=== PATIENT | female | born 1955 | race Caucasian/White ===

== ENCOUNTER 2017-12-23 19:01 | Emergency (ER) | payer MEDICAID, OTHER ==
[~2017-12-23] VITALS: Ht 170.2 cm; Wt 68.0 kg
[~2017-12-23 19:01] MED LIST: ALPR1TAB2 PO; CAPE150T PO; CAPE500T PO; DULO20CA PO; HYDR-3682 PO; ONDA-133 PO; PRE5T PO; SIMV10TA84 PO
[2017-12-23] MEDS ORDERED: ONDANSETRON HCL 4 MG/2 ML VIAL IV ONE (19:45)
[2017-12-23] MEDS ORDERED: NALBUPHINE HCL 10 MG/1ml INJECTION IV ONE (19:45)
[2017-12-23 19:54] LABS: Partial Thromboplastin Time 22.7 sec (23.78-33.04); Prothrombin Time 10.7 sec (9.27-12.13)
[2017-12-23 19:58] LABS: Calcium 8.8 mg/dL (8.5-10.1)
[2017-12-23 19:59] LABS: Basophils # (auto) 0.1 uL; Basophils % (auto) 0.3 % (0.0-2.0); Eosinophils # (auto) 0 uL; Eosinophils % (auto) 0.2 % (0.0-7.0); Hematocrit 44.9 % (36.0-46.0); Hemoglobin 15.3 g/dL (12.2-16.2); Lymphocytes # (auto) 0.7 uL; Mean Corpuscular Hemoglobin 31.5 pg (28.0-32.0); Mean Corpuscular Volume 92.6 fL (80.0-100.0); Monocytes # (auto) 0.5 uL; Monocytes % (auto) 3.2 % (0.0-12.0); Neutrophils # (auto) 15.7 uL; Neutrophils % (auto) 92.3 % (37.0-80.0); Platelet Count (auto) 400 10^3/uL (140-450); Red Blood Cells 4.85 10^6/uL (4.0-5.20); Red Cell Distribution Width 13.2 % (11.8-14.3)
[2017-12-23 20:00] LABS: BUN/Creatinine Ratio 14.1
[2017-12-23 20:09] LABS: Bilirubin, Total 0.7 mg/dL (0.2-1.0); Total Protein 8.4 g/dL (6.4-8.2)
[2017-12-23] MEDS: SODIUM CHLORIDE 0.9% 1,000 ML IV SCH (20:30)
[2017-12-23] MEDS ORDERED: HYDROmorphone HCL 2 MG/ML VL IV ONE (21:30)
[2017-12-23] MEDS ORDERED: MEPERIDINE HCL (50 MG/ML) 1 ML VIAL IV ONE (23:00)
[2017-12-24] MEDS: SODIUM CHLORIDE 0.9% 1,000 ML IV SCH ×2 (00:48→04:39)
[2017-12-24] MEDS ORDERED: ONDANSETRON HCL 4 MG/2 ML VIAL IV ONE (02:15)
[2017-12-24] MEDS ORDERED: MEPERIDINE HCL (50 MG/ML) 1 ML VIAL IV ONE ×2 (02:15→08:00)
[2017-12-24] MEDS ORDERED: cefTRIAXone 1GM/10ml IVPUSH 10 ML IV ONE (02:30)
[2017-12-24] MEDS ORDERED: metroNIDAZOLE 500MG/100ML 100 ML IV ONE (02:30)
[2017-12-24] MEDS ORDERED: diphenhdrAMINE HCL 50 MG/1 ML VL ONE (03:37)
[2017-12-24] MEDS ORDERED: diphenhdrAMINE HCL 50 MG/1 ML VL IV ONE (03:45)
[2017-12-24 03:50] LABS: Urine Bacteria FEW /hpf (None Seen); Urine Blood Negative /uL (Negative); Urine Hyaline Cast MANY /lpf (0 - 2); Urine Mucus MODERATE (None Seen); Urine WBC 4 /hpf (0 - 5)
[2017-12-24 03:55] LABS: Alcohol, Urine < 3.0 mg/dL (0-5); Amphetamine Screen, Urine NEGATIVE (NEGATIVE); Barbiturate Scree,Urine NEGATIVE (NEGATIVE); Benzodiazephine Screen, Urine POSITIVE (NEGATIVE); Cannabinoid Screen, Urine NEGATIVE (NEGATIVE); Cocaine Screen, Urine NEGATIVE (NEGATIVE); Opiate Scree,Urine NEGATIVE (NEGATIVE); Phencyclidine Screen, Urine NEGATIVE (NEGATIVE)
[2017-12-24 07:48] VITALS: BP 141/93
[2017-12-24] MEDS ORDERED: PROMETHAZINE HCL 25 MG/ML 1ML IV ONE (08:00)
== END 2017-12-24 10:04 | disposition short-term general hospital (02) ==
LOC: ER 19:01 → EDBD 19:01 → ER 12-24 10:04
DX: K56.699 Other intestinal obstruction unspecified as to partial versus complete obstruction (principal); I10 Essential (primary) hypertension; R11.2 Nausea with vomiting, unspecified; F17.210 Nicotine dependence, cigarettes, uncomplicated; Z90.710 Acquired absence of both cervix and uterus; Z85.038 Personal history of other malignant neoplasm of large intestine
CPT/HCPCS: 36415; 74018; 74176; 80053; 80307; 81001; 82150; 83690; 85025; 85610; 85730; 93005; 96361; 96365; 96366; 96375; 96376; 99285; J1170; J1200; J2175; J2300; J2405; J2550; J3490; J7030

== ENCOUNTER 2018-02-02 09:28 | Emergency (ER) | payer MEDICARE, MEDICAID ==
[~2018-02-02] VITALS: Ht 162.6 cm; Wt 68.0 kg
[2018-02-02] MEDS ORDERED: ONDANSETRON HCL 4 MG/2 ML VIAL ONE (09:49)
[2018-02-02] MEDS ORDERED: MORPHINE SULFATE 4 MG/ML SYR/VIAL ONE (09:49)
[2018-02-02] MEDS ORDERED: ONDANSETRON HCL 4 MG/2 ML VIAL IV ONE (10:00)
[2018-02-02] MEDS ORDERED: MORPHINE SULFATE 4 MG/ML SYR/VIAL IV ONE ×3 (10:00→14:45)
[2018-02-02] MEDS ORDERED: SODIUM CHLORIDE 0.9% 500 ML IV ONE (10:43)
[2018-02-02] MEDS ORDERED: HYDROmorphone HCL 2 MG/ML VL IV ONE (10:45)
[2018-02-02 11:06] LABS: Basophils # (auto) 0 uL; Basophils % (auto) 0.8 % (0.0-2.0); Eosinophils # (auto) 0.1 uL; Eosinophils % (auto) 2.3 % (0.0-7.0); Hematocrit 35.7 % (36.0-46.0); Hemoglobin 12.1 g/dL (12.2-16.2); Mean Corpuscular Hemoglobin 30.2 pg (28.0-32.0); Mean Corpuscular Hgb Conc. 33.8 g/dL (32.0-36.0); Mean Corpuscular Volume 89.6 fL (80.0-100.0); Monocytes # (auto) 0.6 uL; Monocytes % (auto) 10.6 % (0.0-12.0); Neutrophils # (auto) 4.2 uL; Neutrophils % (auto) 69.3 % (37.0-80.0); Nucleated Red Blood Cells % 0.1 %; Platelet Count (auto) 379 10^3/uL (140-450); Red Blood Cells 3.99 10^6/uL (4.0-5.20); Red Cell Distribution Width 14.3 % (11.8-14.3)
[2018-02-02 11:28] LABS: Alanine Aminotransferase 15 U/L (13-56); Albumin 3.2 g/dL (3.4-5.0); Alkaline Phosphatase 95 U/L (45-117); Amylase 35 U/L (25-115); Anion Gap 9 (5-15); Aspartate Aminotransferase 15 U/L (15-37); BUN/Creatinine Ratio 10.1; Bilirubin, Total 0.3 mg/dL (0.2-1.0); Blood Urea Nitrogen 7 mg/dL (7-18); Calcium 7.1 mg/dL (8.5-10.1); Carbon Dioxide 29 mmol/L (21-32); Chloride 105 mmol/L (98-107); GFR African American 111 mL/min; GFR Non-African American 92 mL/min; Glucose 97 mg/dL (74-106); Lipase 83 U/L (73-393); Potassium 3.3 mmol/L (3.5-5.1); Sodium 143 mmol/L (136-145); Total Protein 6.8 g/dL (6.4-8.2)
[2018-02-02] MEDS ORDERED: NALBUPHINE HCL 10 MG/1ml INJECTION IV ONE (12:30)
[2018-02-02] MEDS ORDERED: PROMETHAZINE HCL 25 MG/ML 1ML IV ONE (12:30)
[2018-02-02 12:47] LABS: Urine Bacteria FEW /hpf (None Seen); Urine Blood Negative /uL (Negative); Urine Specific Gravity 1.011 (1.001-1.035); Urine WBC 6 /hpf (0 - 5)
[2018-02-02 15:14] VITALS: BP 151/92
== END 2018-02-02 15:28 | disposition short-term general hospital (02) ==
LOC: EDBD 09:28 → ER 09:28
DX: R10.13 Epigastric pain (principal); Z90.49 Acquired absence of other specified parts of digestive tract; E78.5 Hyperlipidemia, unspecified; Z90.710 Acquired absence of both cervix and uterus; Z79.899 Other long term (current) drug therapy; Z88.8 Allergy status to other drugs, medicaments and biological substances
CPT/HCPCS: 36415; 74176; 80053; 81001; 82150; 83690; 84484; 85025; 93005; 94761; 96374; 96375; 96376; 99291; J2270; J2300; J2405; J2550; J7040

== ENCOUNTER 2020-11-02 10:51 | Emergency (ER) | payer OTHER, MEDICAID ==
[~2020-11-02] VITALS: Ht 165.1 cm; Wt 76.7 kg
[2020-11-02] MEDS ORDERED: HYDROcodone-ACET 5/325MG TAB PO ONE (11:30)
[2020-11-02] MEDS ORDERED: KETOROLAC TROMETH 60MG/2ML VIAL IM ONE (11:30)
[2020-11-02 12:09] VITALS: BP 144/75
== END 2020-11-02 12:41 | disposition home or self-care (01) ==
LOC: ER 10:51
DX: M51.16 Intervertebral disc disorders with radiculopathy, lumbar region (principal); E78.5 Hyperlipidemia, unspecified; F17.210 Nicotine dependence, cigarettes, uncomplicated; Z85.038 Personal history of other malignant neoplasm of large intestine; Z90.710 Acquired absence of both cervix and uterus; Z88.6 Allergy status to analgesic agent
CPT/HCPCS: 72131; 96372; 99284; J1885

== ENCOUNTER 2021-11-18 09:36 | Emergency (ER) | payer OTHER, MEDICAID ==
[~2021-11-18] VITALS: Ht 165.1 cm; Wt 59.0 kg
[2021-11-18] MEDS ORDERED: SODIUM CHLORIDE 0.9% 1,000 ML IVB ONE (11:30)
[2021-11-18 12:09] LABS: Basophils # (auto) 0 10 ^3/uL (0-0.2); Basophils % (auto) 0.3 % (0.0-2.0); Eosinophils # (auto) 0 10 ^3/uL (0-0.8); Eosinophils % (auto) 0.1 % (0.0-7.0); Hematocrit 34.4 % (36.0-46.0); Hemoglobin 11.7 g/dL (12.2-16.2); Lymphocytes # (auto) 0.9 10 ^3/uL (0.4-5.4); Lymphocytes % (auto) 8.4 % (10.0-50.0); Mean Corpuscular Hemoglobin 32.1 pg (28.0-32.0); Mean Corpuscular Hgb Conc. 34.1 g/dL (32.0-36.0); Mean Corpuscular Volume 94.3 fL (80.0-100.0); Monocytes # (auto) 0.3 10 ^3/uL (0-1.3); Monocytes % (auto) 3.3 % (0.0-12.0); Neutrophils % (auto) 87.9 % (37.0-80.0); Red Blood Cells 3.65 10^6/uL (4.0-5.20); Red Cell Distribution Width 17.5 % (11.8-14.3); White Blood Cell 10.3 10^3/uL (4.4-10.8)
[2021-11-18 12:22] LABS: Albumin 3.2 g/dL (3.4-5.0); Calcium 7.8 mg/dL (8.5-10.1); Potassium 3.7 mmol/L (3.5-5.1)
[2021-11-18 12:25] LABS: BUN/Creatinine Ratio 13.5
[2021-11-18 12:27] LABS: Bilirubin, Total 0.4 mg/dL (0.2-1.0); Total Protein 6.2 g/dL (6.4-8.2)
[2021-11-18 12:30] LABS: Magnesium 0.8 mg/dL (1.6-2.6)
[2021-11-18] MEDS ORDERED: PROMETHAZINE HCL 25 MG/ML 1ML IV ONE ×2 (12:30→19:15)
[2021-11-18] MEDS: MAGNESIUM SULFATE 1GM/100ML 100 ML IV SCH ×3 (12:42→14:42)
[2021-11-18] MEDS ORDERED: IOHEXOL 300 MG/ML 100ML BOTTLE IJ ONE (15:26)
[2021-11-18 15:47] LABS: Urine Bacteria NONE SEEN /hpf (None Seen); Urine Blood Negative /uL (Negative); Urine Specific Gravity 1.013 (1.001-1.035); Urine WBC <1 /hpf (0 - 5)
[2021-11-18] MEDS ORDERED: MORPHINE SULFATE 4 MG/ML SYR/VIAL IV ONE (19:15)
[2021-11-18 23:26] VITALS: BP 122/77
== END 2021-11-19 00:23 | disposition short-term general hospital (02) ==
LOC: EDBD 09:36 → ER 09:36
DX: K52.9 Noninfective gastroenteritis and colitis, unspecified (principal); K56.609 Unspecified intestinal obstruction, unspecified as to partial versus complete obstruction; C79.51 Secondary malignant neoplasm of bone; E78.5 Hyperlipidemia, unspecified; F17.210 Nicotine dependence, cigarettes, uncomplicated; Z90.49 Acquired absence of other specified parts of digestive tract; Z90.710 Acquired absence of both cervix and uterus; Z85.038 Personal history of other malignant neoplasm of large intestine; Z79.899 Other long term (current) drug therapy; Z88.1 Allergy status to other antibiotic agents; Z88.8 Allergy status to other drugs, medicaments and biological substances; Z20.822 Contact with and (suspected) exposure to COVID-19
CPT/HCPCS: 36415; 71045; 74177; 80053; 81001; 83690; 83735; 84443; 85025; 87426; 93005; 96365; 96366; 96375; 96376; 99285; J2270; J2550; J3475; J7030; Q9967